=== PATIENT | male | born 1945 | race Caucasian/White ===

== ENCOUNTER → 2017-02-10 | Outpatient (CLI) | payer OTHER | END | disposition home or self-care (01) | LOC: CARD 12:26 | PROVIDERS: ATTEND Physician Assistant | DX: C34.90 Malignant neoplasm of unspecified part of unspecified bronchus or lung (principal) | CPT/HCPCS: 94060; 94726; 94729 ==

== ENCOUNTER → 2019-10-12 | Outpatient (CLI) | payer OTHER | END | disposition home or self-care (01) | LOC: CARD 14:55 | PROVIDERS: ATTEND Orthopaedic Surgery | DX: J98.4 Other disorders of lung (principal) | CPT/HCPCS: 94060 ==